=== PATIENT | male | born 1995 | race Caucasian/White ===

== ENCOUNTER → 2021-09-16 14:19 | Outpatient (CLI) | payer OTHER, SELFPAY ==
--- NOTE | ~2021-09-16 | US_ITS ---
US scrotum doppler INDICATION: TECHNIQUE: Testicular sonogram utilizing grayscale and color Doppler FINDINGS: There is testicular microlithiasis. No discrete testicular mass. No focal lesions are seen. The right testes measures 3.8 x 1.5 x 2.4 cm centimeters, and the left testis measures 3.6 x 1.6 x 2 .5 cm cm. There is normal vascular flow to both testes. The right and left epididymides appear normal. There are bilateral varicoceles. IMPRESSION: 1. Bilateral testicular microlithiasis. 2: Bilateral varicoceles. Reviewed, dictated and finalized at location A.
== END ==
LOC: EXPGOSH 14:36 → EXPGOSHRAD 09-19 14:43
PROVIDERS: PCP Urology; Visit Provider Urology
DX: Z31.41 Encounter for fertility testing (principal); I86.1 Scrotal varices
CPT/HCPCS: 76870; 93976

== ENCOUNTER 2024-12-13 15:33 | Outpatient (CLI) | payer OTHER, SELFPAY ==
--- NOTE | ~2024-12-13 | US_ITS ---
EXAMINATION: US scrotum doppler, 12/13/2024 15:38 CDT HISTORY: testicular Microlithiasis Comparison: None Technique: Corey-scale and color Doppler images were obtained of the testes with spectral analysis to document arterial and venous flow. Findings: Right Testicle:Right testicle 3.9 x 1.7 x 2.1 cm, microlithiasis, normal flow. Right Epidiymis:Unremarkable. Normal flow. Left Testicle: Left testicle 4.2 x 1.8 x 2.9 cm, microlithiasis, normal flow. Left Epidiymis: Unremarkable. Normal flow. Hydrocele: None . Varicocele: None Scrotum: Unremarkable. No skin thickening. Impression: 1. No acute process. Minimal microlithiasis. Follow-up suggested to assess stability Reviewed, dictated and finalized at location P. Impression: 1. No acute process. Minimal microlithiasis. Follow-up suggested to assess stab ility
== END 2024-12-13 15:34 | disposition home or self-care (01) ==
PROVIDERS: PCP Urology; Visit Provider Urology
DX: N50.89 Other specified disorders of the male genital organs (principal)
CPT/HCPCS: 76870; 93976